=== PATIENT | male | born 1960 | race Caucasian/White ===

== ENCOUNTER 2021-10-05 22:34 | Emergency (ER) | payer BC, SELFPAY ==
[2021-10-05 22:39] VITALS: BP 161/93; PULSE 68; RESP 12; TEMP 36.8; O2SAT 99
--- NOTE | 2021-10-05 22:59 | ED.GENADUL_ITS ---
Discharge Plan Disposition Patient Disposition: HOME Condition: Good Discharge Details Clinical Impression: Abdominal discomfort, History of urine color changes Primary Care Provider: Unknown,Unknown ED Provider: Alexandr Bradley Home Meds and New Rx's Prescriptions: Continued ascorbic acid (vitamin C) 1,000 mg Tablet,Chewable 1 g PO Q6H 0RF Discharge Instructions Additional Instructions: At this time your work-up is returned very reassuring. There is no current evidence of significant abnormality for your kidneys, your urine, and your pancreas, or your blood. We did discuss the slight decrease in your hemoglobin levels which is very stable at your current age group. You will be contacted if your Covid test returns positive. It would take 2 to 3 days for your results to come back. If you notice any worsening of your symptoms, or any new symptoms such as vomiting, diarrhea, fever, chills, shortness of breath, chest pain, numbness, weakness, or fainting , please return immediately to the emergency department for reevaluation. Please follow up with your primary care provider as soon as possible for reassessment and reevaluation. As always, it was a pleasure participating in your medical care today. Medical Decision Making This is a very pleasant 61-year-old male with no significant past medi luis e history who is otherwise in very good health, presents today for 1 week of darker colored cloudy urine. He denies any pain with urination, increase in urinary frequency, or presence of blood. Over the last day or so he has noted a slight achiness in his right flank, in conjunction with mild nausea feeling slightly unwell in his abdomen. He denies any vomiting or diarrhea. He denies any current sexual activity. He denies any history of STDs. He denies any fever or chills. He does take a few multivitamins, but no other medications. No IV or illicit drug use. No history of kidney stones or prostate problems otherwise. No other complaints at this time. 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 Physical exam demonstrates a very well-appearing male, no toxic appearance whatsoever. No abdominal tenderness, CVA tenderness genital tenderness, testicular tenderness or penile discharge. Differential is high for mild urinary tract infection, but also includes kidney stone. With no signs of an acute surgical abdomen at this time and no abdominal pain whatsoever patient no current indication for emergent CT imaging to start. We will get urinalysis, monitor closely and reassess. 12:50 AM Urinalysis is returned normal, laboratory work-up was ordered and has also returned to normal with no significant abnormalities, white count, bandemia, left shift. Renal function excellent. Lipase normal. CPK normal. Repeat exam continues to show nonsurgical abdomen. Patient feels well and reassured. Patient does bring up that he had similar symptoms when he had COVID 2 years ago, he has been vaccinated and boosted most recently in June. He has no runny nose, congestion or discharge or fever or chills, however out of an abundance of precaution we will get a nasal swab. At this time patient is stable for discharge. Recommend close follow-up with PCP. Discussed red flags which to return. With no significant abdominal pain whatsoever currently, a very reassuring work-up, I do feel that he is safe for discharge with close outpatient follow-up. have extensively reviewed the treatment plan and discharge instructions with the patient. I have addressed all patient concerns at this time. The patient was made aware of what symptoms to monitor for that would warrant a return to the emergency department. Discussed the plan with the patient, they demonstrate verbal understanding and agreement with our assessment and plan at this time. The documentation in this chart was dictated using [employer] dictation software. Please excuse any dictation errors. HPI General Date/Time Provider Initiated Documentation: 10/05/21 22:48 . HPI Narrative: This is a very pleasant 61-year-old male with no significant past medical history who is otherwise in very good health, presents today for 1 week of darker colored cloudy urine. He denies any pain with urination, increase in urinary frequency, or presence of blood. Over the last day or so he has noted a slight achiness in his right flank, in conjunction with mild nausea feeling slightly unwell in his abdomen. He denies any vomiting or diarrhea. He denies any current sexual activity. He denies any history of STDs. He denies any fever or chills. He does take a few multivitamins, but no other medications. No IV or illicit drug use. No history of kidney stones or prostate problems otherwise. No other complaints at this time. 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 Related Data Home Medications Medication Instructions Recorded Confirmed ascorbic acid (vitamin C) 1,000 mg 1 g PO Q6H 10/05/21 10/05/21 chewable tablet Allergies Allergy/AdvReac Type Severity Reaction Status Date / Time No Known Allergies Allergy Unverified 10/05/21 22:48 General Stated Complaint: Urinary SANDRA: 3 Review of Systems All systems reviewed & are unremarkable except as noted in HPI and below PFSH All Active Problems (Updated 10/06/21 @ 00:47 by Alexandr Bradley DO) Abdominal discomfort (Acute) History of urine color changes (Acute) Social History Smoking/Tobacco Use Status: Never Smoking risk assessment performed?: Yes Substance use type: does not use Do you feel safe at home: Yes Do you feel safe in your relationship?: Yes Exam Narrative Exam Narrative: 1.Const: Well-nourished, Well-developed, appearing stated age 2.Eyes: PERRL, no conjunctival injection, and symmetrical lids. 3.ENT: Atraumatic external nose and ears. Moist MM. Neck: Symmetric, trachea midline, No thyromegaly. 4.CVS: +S1/S2, No murmurs or gallops. Peripheral pulses 2+ and equal in all extremities. Brisk capillary refill in all extremities. 5.RESP: Unlabored respiratory effort. Clear to auscultation bilaterally. No wheezes rales or rhonchi 6.GI: Soft, Nontender/Nondistended, No hepatosplenomegaly. No guarding or rebound. No flank or CVA tenderness on percussion. No pain or McBurney's point, negative Mccoy sign. No testicular tenderness. Normal testicular positioning. Circumcised penis. No penile pain or urethral discharge. No evidence of cellulitis or infection. No inguinal hernia. No scrotal hernia. 7.MSK: Normocephalic/Atraumatic, Extremities w/o deformity or ttp No cyanosis or clubbing, Normal movement of all extremities 8.Skin: Warm, Dry. No rashes or lesions. 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 Sensation grossly intact, no focal neurologic deficits. 10.Psych: (AAO) x3. Appropriate mood and affect Course Vital Signs Vital signs: Vital Signs Temperature 36.8 C 10/05/21 22:39 Pulse 68 10/05/21 22:39 Respiratory Rate 12 10/05/21 22:39 Blood Pressure 161/93 H 10/05/21 22:39 Pulse Oximetry 99 10/05/21 22:39 Temperature 36.8 C 10/05/21 22:39 Temperature Source Temporal Artery Scan 10/05/21 22:39 Pulse 68 10/05/21 22:39 Respiratory Rate 12 10/05/21 22:39 Respiratory Effort Non-Labored 10/05/21 22:44 Blood Pressure 161/93 H 10/05/21 22:39 Blood Pressure Position Sitting 10/05/21 22:39 Pulse Oximetry 99 10/05/21 22:39 Oxygen Delivery Method Room Air 10/05/21 22:39 Oxygen Flow Rate 0 10/05/21 22:39 Pain Level 4 10/05/21 22:44 PAWSS Have you Been Recently Intoxicated or Drunk Within the Last 30 days?: No Have you Ever Experienced Previous Episodes of Alcohol Withdrawal?: No Have you ever Experienced Withdrawal Seizures?: No Have you ever Experienced Delirium Tremens(DT)s?: No Have you ever undergone Alcohol Rehabilitation Treatment (i.e, inpt ot outpatient treatment programs)?: No Have you ever Experienced Blackouts?: No Have you ever Combined Alcohol with other Downers within the last 90 days?: No Have you ever Combined Alcohol with any other Substance of Abuse during the last 90 days?: No Positive Blood Alcohol level on Presentation? [PCS.BAL]: No Evidence of Increased Autonomic Activity (i.e. HR>120, tremor, sweating, agitation, nausea)?: No Result: 0
[2021-10-05 23:09] LABS: Bilirubin Negative (Negative); Blood Negative (Negative); Clarity Clear (Clear); Glucose Negative (Negative); Ketones Negative (Negative); Leukocyte Esterase Negative (Negative); Nitrite Negative (Negative); Specific Gravity 1.015 (1.005-1.025); Urobilinogen 0.2 EU/dL (Up TO 0.2); pH 6.5 (5-8)
[2021-10-06 00:12] LABS: Abs Immature Grans 0.01 10^3/uL (0.0-0.06); Absolute Basophil Count 0.02 10^3/uL (0.0-0.2); Absolute Eosinophil Count 0.13 10^3/uL (0.0-0.7); Absolute Lymphocyte Count 1.77 10^3/uL (1.2-3.4); Absolute Monocyte Count 0.51 10^3/uL (0.1-0.8); Basophils % 0.3; Eosinophils % 2.3; HGB 12.4 g/dL (13.5-17.5); Immature Grans % 0.2; Lymphocytes % 30.8; MCHC 33.5 % (32.0-36.0); MCV 95.6 fL (80-95); MPV 9.3 fL (8.0-11.0); Monocytes % 8.9; Neutrophils % 57.5; Nucleated RBC 0 %; Platelet Count 215 10^3/uL (130-400); RBC 3.87 10^6/uL (4.36-5.78); RDW 11.9 % (11.8-14.1); RDW-SD 41.2 fL; WBC 5.74 10^3/uL (4.4-10.8)
[2021-10-06 00:23] LABS: Lipase 213 U/L (73-393)
[2021-10-06 00:26] LABS: ALT 21 U/L (16-63); AST 26 U/L (15-37); Albumin 3.9 g/dL (3.4-5.0); Alkaline Phosphatase 126 U/L (46-116); Anion Gap 5.6 mmol/L (3-11); BUN 15 mg/dL (7-18); Bilirubin, Total 0.5 mg/dL (0.2-1.0); CO2 29.4 mmol/L (21.0-32.0); CREATININE 0.8 mg/dL (0.70-1.30); Calcium 8.5 mg/dL (8.5-10.1); Chloride 105 mmol/L (98-107); Creatine Kinase 121 U/L (39-308); Glucose 87 mg/dL (74-106); Potassium 4.2 mmol/L (3.5-5.1); Sodium 140 mmol/L (136-145); Total Protein 6.9 g/dL (6.4-8.2)
[2021-10-07 11:46] LABS: COVID-19 RT-PCR UVMMC Result Negative (Negative)
== END 2021-10-06 01:01 | disposition home or self-care (01) ==
PROVIDERS: Emergency Provider Student in an Organized Health Care Education/Training Program
DX: R10.9 Unspecified abdominal pain (principal); R82.998 Other abnormal findings in urine; Z20.822 Contact with and (suspected) exposure to COVID-19
CPT/HCPCS: 36415; 80053; 82550; 83690; 99283; U0003; 81003; 85025